=== PATIENT | female | born 1985 | race Caucasian/White ===

== ENCOUNTER 2021-01-18 07:35 | Outpatient (CLI) | payer OTHER ==
[2021-01-18 17:46] LABS: SARS-CoV-2 PCR by NAA Not Detected (NotDetected)
== END 2021-01-18 07:36 | disposition home or self-care (01) ==
LOC: CSHLAB 07:35
PROVIDERS: ATTEND Obstetrics & Gynecology
DX: Z20.822 Contact with and (suspected) exposure to COVID-19 (principal); O02.1 Missed abortion
CPT/HCPCS: 87635; U0003; U0005

== ENCOUNTER 2021-01-23 10:14 | Day surgery (SDC) | payer OTHER ==
[2021-01-22 09:43] VITALS: BMI 35.6
[2021-01-23] MEDS ORDERED: Lidocaine 1% MPF 2 ML VIAL ONE (11:03)
[2021-01-23] MEDS ORDERED: Midazolam HCl 2 mg/2 ml Vial ONE (11:46)
[2021-01-23] MEDS ORDERED: Dexamethasone 4 mg/ml Vial ONE (11:48)
[2021-01-23] MEDS ORDERED: Ondansetron PF 4 MG/2 ML Vial ONE (11:48)
[2021-01-23] MEDS ORDERED: Fentanyl 100 MCG/2 ML VIAL ONE (11:48)
[2021-01-23] MEDS ORDERED: Lidocaine 1% PF 5 ML VIAL ONE (11:48)
[2021-01-23] MEDS ORDERED: PROPOFOL 20 ML ONE (11:48)
[2021-01-23] MEDS ORDERED: CEFAZOLIN 1 GM VIAL ONE (11:51)
[2021-01-23] MEDS ORDERED: Methylergonovine 0.2 MG/ML VIAL ONE (12:41)
[2021-01-23] MEDS ORDERED: Ketorolac Tromethamine 30 MG/ML VIAL ONE (12:53)
[2021-01-23] MEDS ORDERED: HYDROcodone/Acetaminophen 7.5/325 mg Tablet PO PRN ×2 (13:46→13:47)
[2021-01-23] MEDS ORDERED: Morphine 2 MG/ML VIAL SLOW IVP PRN (13:46)
[2021-01-23] MEDS ORDERED: Ondansetron PF 4 MG/2 ML Vial IVP PRN (13:47)
[2021-01-23] MEDS ORDERED: Methylergonovine 0.2 MG/ML VIAL IM SCH (14:00)
[2021-01-23] MEDS ORDERED: Methylergonovine 0.2 MG TAB PO SCH (14:00)
== END 2021-01-23 16:00 | disposition home or self-care (01) ==
LOC: CSHSDC 10:14
PROVIDERS: ATTEND Obstetrics & Gynecology
PROC: 10D18ZZ Extraction of Products of Conception, Retained, Via Natural or Artificial Opening Endoscopic (ICD-10-PCS; principal; 2021-01-23)
DX: O02.1 Missed abortion (principal)
CPT/HCPCS: 86850; 86900; 86901; 88305; 90384; 96372; J0690; J1100; J1885; J2210; J2250; J2405; J2704; J3010